=== PATIENT | male | born 1975 | race African-American/Black ===

== ENCOUNTER 2016-10-06 20:42 | Emergency (ER) | payer OTHER ==
[~2016-10-06 20:42] MED LIST: FLEXERIL10 MG PO; VOLTAREN75 MG PO
== END 2016-10-06 20:59 | disposition home or self-care (01) ==
LOC: SED 20:42
DX: S13.4XXA Sprain of ligaments of cervical spine, initial encounter (principal); S33.5XXA Sprain of ligaments of lumbar spine, initial encounter; V49.10XA Passenger injured in collision with unspecified motor vehicles in nontraffic accident, initial encounter
CPT/HCPCS: 99283